=== PATIENT | female | born 1985 | race Caucasian/White ===

== ENCOUNTER 2016-04-29 09:08 | Emergency (ER) | payer OTHER ==
[2016-04-29 09:38] VITALS: BP 117/86
--- NOTE | 2016-04-29 10:28 | UC ---
Throat Pain/Nasal [place] HPI - HPI Summary HPI Summary: cough, sinus congestion x 5 days. Is going on vacation to [place] tomorrow and wants to be better. Has an 8 month old daughter, is not nursing. - History of Current Complaint Chief Complaint: UCRespiratory Stated Complaint: SINUSES,COUGH Time Seen by Provider: 04/29/16 10:22 Hx Obtained From: Patient Hx Last Menstrual Period: 2 weeks ago Onset/Duration: Gradual Onset, Lasting Days, Still Present Severity: Moderate Pain Intensity: 0 Pain Scale Used: 0-10 Numeric Cough: Nonproductive Associated Signs & Symptoms: Positive: Dysphagia, Sinus Discomfort, Nasal Discharge - Allergies/Home Medications Allergies/Adverse Reactions: Allergies Allergy/AdvReac Type Severity Reaction Status Date / Time Sulfamethoxazole Allergy Severe Rash Verified 02/27/16 13:04 w/Trimethoprim [From Bactrim] PMH/Surg Hx/FS Hx/Imm Hx Previously Healthy: Yes - Surgical History Surgical History: Yes Surgery Procedure, Year, and Place: tonsillectomy; collar bone fracture and cyst ; breast cyst removed - Family History Known Family History: Negative: Diabetes - Social History Lives: With Family Alcohol Use: Occasionally Alcohol Amount: but none now Substance Use Type: None Smoking Status (MU): Never Smoked Tobacco - Immunization History Most Recent Influenza Vaccination: 12/30/14 Most Recent Tetanus Shot: 06/23/15 Most Recent Pneumonia Vaccination: not indicated Review of Systems Constitutional: Negative Skin: Negative Eyes: Negative ENT: Sore Throat, Other - sinus congestion Respiratory: Cough Cardiovascular: Negative Gastrointestinal: Negative Genitourinary: Negative Motor: Negative Neurovascular: Negative Musculoskeletal: Negative Neurological: Negative Psychological: Negative All Other Systems Reviewed And Are Negative: Yes Physical Exam Triage Information Reviewed: Yes Appearance: Well-Appearing, No Pain Distress, Well-Nourished Vital Signs: Initial Vital Signs Temp 97.6 F 04/29/16 09:35 Pulse 85 04/29/16 09:35 Resp 16 04/29/16 09:35 BP 117/86 04/29/16 09:35 Pulse Ox 98 04/29/16 09:35 Vital Signs Reviewed: Yes Eyes: Positive: Conjunctiva Clear ENT: Positive: Hearing grossly normal, Pharyngeal erythema, TMs normal, Other: - sinus tenderness bilat maxillary Neck: Positive: Supple, Nontender, No Lymphadenopathy Respiratory: Positive: Lungs clear, Normal breath sounds, No respiratory distress Cardiovascular: Positive: RRR, No Murmur, Pulses Normal, Brisk Capillary Refill Musculoskeletal: Positive: Strength Intact, ROM Intact Neurological: Positive: Alert, Muscle Tone Normal Psychological Exam: Normal Skin Exam: Normal Throat Pain/Nasal Course/Dx - Differential Dx/Diagnosis Differential Diagnosis/HQI/PQRI: Laryngitis, Pharyngitis, Sinusitis, URI Provider Diagnoses: sinusitis Discharge - Discharge Plan Condition: Stable Disposition: HOME Prescriptions: Amoxicillin/Clavulanate TAB* [Augmentin TAB 875*] 875 mg PO BID #20 tab Benzonatate CAP* [Tessalon CAP*] 100 mg PO TID #20 cap Fluticasone NASAL SPRAY 50MCG* [Flonase NASAL SPRAY 50MCG*] 2 spray BOTH NARES DAILY #1 btl Patient Education Materials: Sinusitis (ED) Referrals: No Primary Care Phys,NOPCP [Primary Care Provider] - Additional Instructions: We have given a list of providers that are taking new patients so you can get established with a new PCP. Return to urgent care if any new or worsening symptoms.
== END 2016-04-29 10:45 | disposition home or self-care (01) ==
LOC: UCCORT 09:08
DX: J32.0 Chronic maxillary sinusitis (principal); R05 Cough; Z88.2 Allergy status to sulfonamides
CPT/HCPCS: 99212; G0463